=== PATIENT | male | born 2000 | race Caucasian/White ===

== ENCOUNTER 2020-03-18 16:01 | Emergency (ER) | payer SELFPAY ==
[2020-03-18 16:04] VITALS: BP 117/82; PULSE 61; RESP 18; TEMP 36.8; O2SAT 100; BMI 23.3
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
[2020-03-18] MEDS: acetaminophen 500 mg Tablet 1000 MG PO (17:23)
[2020-03-18 18:39] VITALS: BP 142/75; PULSE 86; RESP 17; O2SAT 98
== END 2020-03-18 18:40 | disposition home or self-care (01) ==
PROVIDERS: Emergency Provider Emergency Medicine
DX: S02.19XA Other fracture of base of skull, initial encounter for closed fracture (principal); S02.85XA Fracture of orbit, unspecified, initial encounter for closed fracture; W16.722A Jumping or diving from boat striking bottom causing other injury, initial encounter; Y92.828 Other wilderness area as the place of occurrence of the external cause
CPT/HCPCS: 12345; 70450; 70486; 99282; 99283